=== PATIENT | female | born 1985 | race Caucasian/White ===

== ENCOUNTER 2016-11-28 09:25 | Emergency (ER) | payer MEDICAID ==
[~2016-11-28] VITALS: Ht 152.4 cm; Wt 73.5 kg
[2016-11-28 10:52] VITALS: BP 123/96
[2016-11-28] MEDS ORDERED: cefTRIAXone SOD 1,000 MG VL IM ONE (11:15)
[2016-11-28] MEDS ORDERED: KETOROLAC TROMETH 60MG/2ML VIAL IM ONE (11:15)
== END 2016-11-28 11:47 | disposition home or self-care (01) ==
LOC: ER 09:27
DX: J02.9 Acute pharyngitis, unspecified (principal); N39.0 Urinary tract infection, site not specified; F17.210 Nicotine dependence, cigarettes, uncomplicated; F12.10 Cannabis abuse, uncomplicated; Z90.710 Acquired absence of both cervix and uterus; Z98.890 Other specified postprocedural states; Z88.0 Allergy status to penicillin; Z88.1 Allergy status to other antibiotic agents; Z88.6 Allergy status to analgesic agent
CPT/HCPCS: 81025; 96372; 99284; J0696; J1885

== ENCOUNTER 2018-07-17 20:03 | Emergency (ER) | payer MEDICAID ==
[~2018-07-17] VITALS: Ht 152.4 cm; Wt 77.1 kg
[2018-07-17 20:24] VITALS: BP 118/78
[2018-07-17 21:13] LABS: Urine Bacteria NONE SEEN /hpf (None Seen); Urine Blood 1+ /uL (Negative); Urine Mucus FEW (None Seen); Urine Specific Gravity 1.023 (1.001-1.035); Urine WBC 2 /hpf (0 - 5)
== END 2018-07-17 23:55 | disposition left against medical advice (07) ==
LOC: ER 20:03
DX: R42 Dizziness and giddiness (principal); R10.9 Unspecified abdominal pain; Z53.21 Procedure and treatment not carried out due to patient leaving prior to being seen by health care provider
CPT/HCPCS: 74176; 81001